=== PATIENT | female | born 1980 | race Caucasian/White ===

== ENCOUNTER 2023-05-29 00:50 | Inpatient (IN) | payer BC, SELFPAY ==
[2023-05-29 00:50] VITALS: BP 136/94; PULSE 71; RESP 18; TEMP 36.9; O2SAT 100; BMI 25.0
[2023-05-29 01:12] LABS: HCG Qualitative Urine. Negative (Negative)
--- NOTE | 2023-05-29 01:29 | ED.C_ITS ---
HPI - Psych 2 General: Chief Complaint: Psychiatric Symptoms Stated Complaint: MHE Time Seen by Provider: 05/29/23 00:51 History of Present Illness: Patient presents to the ER with suicidal ideation. Police was called by crisis center who she called and said she had a gun and pointed to her head. When police got there she did admitted suicidal ideation. They did find a gun. They are filling out affidavits and they bring her here for 96-hour hold for psychiatric evaluation. At this moment patient is agreeable but patient will be placed on 96-hour hold. Patient states that she had this happen 1 other to the previous time and February. 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 Review of Systems 2 General: Reports: 10 or more systems reviewed and unremarkable except in HPI and below Physical Exam 2 Const: COMMON NORMALS: no acute distress, average body habitus, patient oriented x3, no limitations, healthy appearing, alert and well nourished HENMT: COMMON NORMALS: normocephalic, atraumatic, hearing grossly normal bilaterally, external ears normal, Normal external nose present, moist oral mucous membranes and oropharynx normal HEAD & SCALP: normocephalic and atraumatic NOSE: Normal external nose present EXTERNAL EAR: Yes external ears normal Neck/C-Spine: COMMON NORMALS: full ROM, no lymphadenopathy, supple, no meningeal signs, no JVD and Thyroid normal THYROID: Thyroid normal Chest: COMMONS NORMALS: normal inspection of the chest and normal palpation of entire chest wall Resp: COMMON NORMALS: normal respiratory effort, No retractions, No use of accessory muscles and clear to auscultation bilaterally AUSCULTATION: clear to auscultation bilaterally Cardio: COMMON NORMALS: no JVD, regular rate, regular rhythm, S1 normal heart sound present, S2 normal heart sound present, No gallops present (Cardio), No clicks present (Cardio), No murmurs present (Cardio) and No rub (Cardio) R ATE: regular rate RHYTHM: regular rhythm HEART SOUNDS: S1 normal heart sound present and S2 normal heart sound present GI: COMMON NORMALS: Normal to inspection, nondistended, normoactive bowel sounds present, Soft to palpation, non-tender, No hepatosplenomegaly present and no masses PALPATION: Yes Soft to palpation and Yes No hepatosplenomegaly present Neuro: COMMON NORMALS: patient oriented x3 SENSORIUM/ORIENTATION: Yes alert MENINGEAL SIGNS: Yes no meningeal signs Course 2 Vital Signs: Vital signs: Vital Signs Temperature 98.5 F 05/29/23 00:50 Pulse Rate 71 05/29/23 00:50 Respiratory Rate 18 05/29/23 00:50 Blood Pressure 136/94 05/29/23 00:50 Pulse Oximetry 100 05/29/23 00:50 Oxygen Delivery Me thod Room Air 05/29/23 00:50 MDM - Psych Medical Decision Making Patient presents to the ER with suicidal ideation. Patient be worked up in the normal psychiatric fashion for medical clearance. Anticipate patient will be admitted to MPU for further evaluation and treatment by Dr. Mathew. Dr. Mathew was consulted and agreed to admit the patient to MPU for further evaluation and treatment. Differential Diagnosis Likely suicidal ideation and depression; Unlikely acute psychosis, chronic schizophrenia, bipolar disorder, drug-induced psychotic disorder or acute anxiety Medical Records I reviewed the patient's medical records. Lab Data I reviewed the patient's lab results. 05/29/23 01:26 05/29/23 01:26 Laboratory Results WBC 8.63 10^3/uL (3.29-11.43) 05/29/23 01:26 RBC 3.79 10^6/uL (3.85-5.65) L 05/29/23 01:26 Hgb 12.30 g/dL (11.27-16.99) 05/29/23 01:26 Hct 36.5 % (36-47) 05/29/23 01:26 MCV 96.3 fl (85-98) 05/29/23 01:26 MCH 32.5 pg (27-33) 05/29/23 01:26 MCHC 33.7 g/dL (30-55) 05/29/23 01:26 RDW 13.2 % (12.1-15.1) 05/29/23:26 Plt Count 247 10^3/cmm (157-399) 05/29/23:26 MPV 10.5 fL (7.4-10.4) H 05/29/23 01:26 Neut % (Auto) 59.8 % 05/29/23 01:26 Lymph % (Auto) 31.6 % 05/29/23 01:26 Hays % (Auto) 7.0 % 05/29/23 01:26 Eos % (Auto) 0.8 % 05/29/23 01: Baso % (Auto) 0.6 % 05/29/23 01: Neut # (Auto) 5.16 10^3/uL (1.8-7.7) 05/29/23: Lymph # (Auto) 2.7 10^3/uL (0.8-4.8) 05/29/23 01: Hays # (Auto) 0.6 10^3/uL (0.2-0.9) 05/29/23: Eos # (Auto) 0.1 10^3/uL (0.0-0.8) 05/29/23: Baso # (Auto) 0.1 10^3/uL (0.0-0.1) 05/29/23: Nucleated RBC % (auto) 0 % 05/29/23: Nucleated RBCs # 0.0 /100WBC 05/29/23 01: Sodium 142 mmol/L (136-145) 05/29/23 01: Potassium 3.7 mmol/L (3.5-5.1) 05/29/23: Chloride 106 mmol/L (98-107) 05/29/23 01: Carbon Dioxide 25 mmol/L (22-29) 05/29/23: Anion Gap 14.7 (5-19) 05/29/23: BUN 12 mg/dL (6-20) 05/29/23 01: Creatinine 0.7 mg/dL (0.5-0.9) 05/29/23: GFR Calculation 90.9 mL/min (90-130) 05/29/23 01:26 Glucose 96 mg/dL (65-115) 05/29/23: Calculated Osmolality 294 mOsm/kg (285-295) 05/29/23:26 Calcium 9.1 mg/dL (8.5-10.5) 05/29/23 01:26 Total Bilirubin 0.2 mg/dL (0.15-1.2) 05/29/23: AST 17 U/L (0-32) 05/29/23: ALT 13 U/L (0-33) 05/29/23 01:26 Alkaline Phosphatase 42 U/L (35-105) 05/29/23 01:26 Total Protein 6.7 g/dL (6.6-8.7) 05/29/23 01:26 Albumin 4.1 g/dL (3.5-5.2) 05/29/23 01:26 Globulin 2.6 g/dL (1.3-4.6) 05/29/23 01:26 HCG, Qual Negative (Negative) 05/29/23 01:00 Salicylates 0.4 mg/dL (3-10) L 05/29/23 01:26 Urine Opiates Screen Negative ng/mL (Negative) 05/29/23 01:15 Acetaminophen < 5.0 ug/mL (10-30) L 05/29/23 01:26 Ur Barbiturates Screen Negative ng/mL (Negative) 05/29/23 01:15 Ur Phencyclidine Scrn Negative ng/mL (Negative) 05/29/23 01:15 Ur Amphetamines Screen Negative ng/mL (Negative) 05/29/23 01:15 U Benzodiazepines Scrn Negative ng/mL (Negative) 05/29/23 01:15 Urine Cocaine Screen Negative ng/mL (Negative) 05/29/23 01:15 U Marijuana (THC) Screen Negative ng/mL (Negative) 05/29/23 01:15 Ethyl Alcohol 73 mg/dL (0-10) H 05/29/23 01:26 No radiology studies performed this visit Discharge Plan Discharge Patient Disposition: Admitted As Inpatient Clinical Impression: Suicidal ideation Condition: Stable Coding Level of Care Code ED Painter Set for Yaron Lamb
[2023-05-29 01:33] LABS: Basophils # 0.1 10^3/uL (0.0-0.1); Basophils % 0.6 %; Eosinophils # 0.1 10^3/uL (0.0-0.8); Eosinophils % 0.8 %; Hematocrit 36.5 % (36-47); Lymphocytes # 2.7 10^3/uL (0.8-4.8); Lymphocytes % 31.6 %; Mean Corpuscular HGB Conc 33.7 g/dL (30-55); Mean Corpuscular Hemoglobin 32.5 pg (27-33); Mean Corpuscular Volume 96.3 fl (85-98); Mean Platelet Volume 10.5 fL (7.4-10.4); Monocytes # 0.6 10^3/uL (0.2-0.9); Neutrophils # 5.16 10^3/uL (1.8-7.7); Neutrophils % 59.8 %; Nucleated Red Blood Cells % 0 %; Platelet Count 247 10^3/cmm (157-399); Red Blood Count 3.79 10^6/uL (3.85-5.65); Red Cell Distribution Width 13.2 % (12.1-15.1); White Blood Count 8.63 10^3/uL (3.29-11.43)
[2023-05-29 01:49] LABS: Alanine Aminotransferase 13 U/L (0-33); Albumin Level 4.1 g/dL (3.5-5.2); Alcohol Level 73 mg/dL (0-10); Alkaline Phosphatase 42 U/L (35-105); Anion Gap 14.7 (5-19); Aspartate Amino Transferase 17 U/L (0-32); Blood Urea Nitrogen 12 mg/dL (6-20); Calcium 9.1 mg/dL (8.5-10.5); Carbon Dioxide 25 mmol/L (22-29); Chloride 106 mmol/L (98-107); Globulin 2.6 g/dL (1.3-4.6); Glomerular Filtration Rate 90.9 mL/min (90-130); Glucose 96 mg/dL (65-115); Osmolality Calculated 294 mOsm/kg (285-295); Potassium 3.7 mmol/L (3.5-5.1); Salicylate 0.4 mg/dL (3-10); Sodium 142 mmol/L (136-145); Total Bilirubin 0.2 mg/dL (0.15-1.2); Total Protein 6.7 g/dL (6.6-8.7)
[2023-05-29 01:50] LABS: Acetaminophen < 5.0 ug/mL (10-30)
[2023-05-29 02:31] LABS: Amphetamines Screen Urine Negative (Negative); Barbiturates Screen Urine Negative (Negative); Benzodiazepines Screen Urine Negative (Negative); Cocaine Screen Urine Negative (Negative); Opiate Screen Urine Negative (Negative); PCP Screen Urine Negative (Negative); THC Screen Urine Negative (Negative)
--- NOTE | 2023-05-29 02:37 | PC.NURSE ---
96 Hour Involuntary Patient Rights have been read to patient and a copy of the same has been given to her. Penology Professor Leopoldo Cage was present at bedside.
--- NOTE | 2023-05-29 02:47 | PC.NURSE ---
Pt. asked for nurse to come in the room and talk to her. Flor PEREZ went into the room and tried to talk to the patient and is yelling at flor perez , saying that she is being held here against her will and she needs to call a apprentice stylist. Pt. then states that she has bills to pay , 4 kids at home and she is starting a new job tomorrow. Pt. states that she is getting locked up and no one is going to know where she is. I tried to explain to patient that the 96 hour hold is controlled by the psychiatrist and she would be evaluated by them and then they would decide further treatment. The patient then began screaming and saying that I was raising my voice. I explained that I was trying to explain to her the process, and that because she was interrupting and being loud that I was loud as well. 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
[2023-05-29 02:50] LABS: Add Urine Microscopic? YES; Bilirubin Urine Neg (Negative); Blood Urine 2+ (Negative); Glucose Urine UA Norm (Normal); Ketones Urine Negative (Negative); Leukocyte Esterase Urine Negative (Negative); Nitrate Urine Negative (Negative); Protein Urine Neg (Negative); Urine Appearance Clear (CLEAR); Urine Color Yellow (Yellow); Urobilinogen Urine Neg (Negative); pH Urine 6 (5-7)
[2023-05-29 02:51] LABS: Add Urine Culture? No; Bacteria Urine TRACE /hpf; RBC Urine 0-4 /hpf (0-2)
--- NOTE | 2023-05-29 03:02 | PC.NURSE ---
Pt refused ativan, notified. Wasted ativan with [place] PEREZ.
[2023-05-29 03:25] VITALS: BP 131/88; PULSE 76; RESP 18; TEMP 36.3; O2SAT 100
[2023-05-29] MEDS: OLANZapine 5 mg ODT PO (03:48)
[2023-05-29 06:00] VITALS: BP 93/56; PULSE 56; RESP 16; TEMP 36.6; O2SAT 95
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
[2023-05-29] MEDS: folic acid 1 mg Tablet PO (10:02)
[2023-05-29] MEDS: multivitamin therapeutic Tablet 1 TAB PO (10:02)
[2023-05-29] MEDS: thiamine 100 mg Tablet PO (10:02)
[2023-05-29 14:00] VITALS: BP 117/75; PULSE 56; RESP 13; O2SAT 99
[2023-05-29 20:12] VITALS: BP 98/63; PULSE 74; RESP 16; O2SAT 97
[2023-05-29] MEDS: trazodone 50 mg Tablet PO (20:14)
[2023-05-30 06:00] VITALS: BP 97/60; PULSE 50; RESP 15; O2SAT 95
[2023-05-30] MEDS: thiamine 100 mg Tablet PO (08:30)
[2023-05-30] MEDS: folic acid 1 mg Tablet PO (08:30)
[2023-05-30] MEDS: multivitamin therapeutic Tablet 1 TAB PO (08:30)
[2023-05-30] MEDS: hyDROXYzine 25 mg Capsule 50 MG PO (13:04)
[2023-05-30 14:00] VITALS: BP 124/77; PULSE 62; RESP 16; TEMP 36.9; O2SAT 100
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
[2023-05-30 14:44] VITALS: BP 124/77; PULSE 62; RESP 16; TEMP 36.9; O2SAT 100
[2023-05-30] MEDS: escitalopram 10 mg Tablet 20 MG PO (14:56)
== END 2023-05-30 15:10 | disposition home or self-care (01) | DRG 885 ==
LOC: ER 01:31 → NP 03:11
PROVIDERS: Admitting Provider Psychiatry & Neurology Psychiatry; Emergency Provider Emergency Medicine; Visit Provider Psychiatry & Neurology Psychiatry
DX: F33.9 Major depressive disorder, recurrent, unspecified (principal); R45.851 Suicidal ideations; Z91.410 Personal history of adult physical and sexual abuse; Z62.812 Personal history of neglect in childhood; F60.9 Personality disorder, unspecified; F41.9 Anxiety disorder, unspecified
CPT/HCPCS: 36415; 80053; 80306; 80307; 81001; 81025; 85025; 97165; 99285